=== PATIENT | male | born 1935 | race Caucasian/White ===

== ENCOUNTER 2022-07-06 11:59 | Day surgery (SDC) | payer MEDICARE, BC ==
[~2022-07-06] VITALS: Ht 182.9 cm; Wt 71.5 kg
[2022-07-06] MEDS ORDERED: MIDAZolam 1mg/ml 10ml vial IV ONE (12:25)
[2022-07-06] MEDS ORDERED: normal saline 1000ml 1,000 ML IV SCH (12:25)
[2022-07-06] MEDS ORDERED: fentaNYL/PF 50MCG/1 ML 2ML syringe IV ONE (12:25)
[2022-07-06 12:30] VITALS: BP 106/63
[2022-07-06] MEDS ORDERED: APIX5TAB3 PO (12:34)
[2022-07-06] MEDS ORDERED: midazolam 1 mg/ML 2ml injection ONE (15:13)
[2022-07-06] MEDS ORDERED: fentaNYL/PF 50MCG/1 ML 2ML syringe ONE (15:13)
[2022-07-06 15:50] VITALS: BP 88/58
[2022-07-06 16:03] VITALS: BP 92/63
[2022-07-06 16:18] VITALS: BP 98/66
[2022-07-06 16:33] VITALS: BP 96/69
[2022-07-06 16:50] VITALS: BP 98/61
== END 2022-07-06 17:00 | disposition home or self-care (01) ==
LOC: SSTAY O 11:59 → EDSTATUS 15:30 → SSTAY O 17:00
PROVIDERS: ATTEND Student in an Organized Health Care Education/Training Program
DX: I08.3 Combined rheumatic disorders of mitral, aortic and tricuspid valves (principal); I48.91 Unspecified atrial fibrillation; I45.10 Unspecified right bundle-branch block; Z79.01 Long term (current) use of anticoagulants
CPT/HCPCS: 93312; 93325; 99152; J2250; J3010; J7030; A4620

== ENCOUNTER 2022-08-24 12:41 | Day surgery (SDC) | payer MEDICARE, BC ==
[2022-08-24] VITALS (7 sets, daily range): BP systolic 99–131; BP diastolic 62–83
[~2022-08-24] VITALS: Ht 190.5 cm; Wt 72.7 kg
[~2022-08-24 12:41] MED LIST: APIX5TAB3 PO
[2022-08-24] MEDS ORDERED: normal saline 1,000 ML IV SCH (13:00)
[2022-08-24] MEDS ORDERED: LORazepam 0.5 MG tablet PO PRN (13:00)
[2022-08-24] MEDS ORDERED: diphenhydrAMINE 25mg capsule PO PRN (13:00)
[2022-08-24] MEDS ORDERED: heparin 1,000unit/ml 10ml vial 10 ML ONE (13:41)
[2022-08-24] MEDS ORDERED: midazolam 1 mg/ML 2ml injection ONE (13:41)
[2022-08-24] MEDS ORDERED: verapamil 2.5 mg/ml inj IV ONE (13:41)
[2022-08-24] MEDS ORDERED: iohexol 350MG/ML 100ml bottle IV ONE ×2 (13:41→15:11)
[2022-08-24] MEDS ORDERED: LIDOcaine 1% (10mg/ml) 2ml vial ONE (13:41)
[2022-08-24] MEDS ORDERED: nitroGLYCERIN-Tridil 50MG/D5W 250 ML IV ONE (13:41)
[2022-08-24] MEDS ORDERED: fentaNYL/PF 50MCG/1 ML 2ML syringe ONE (13:41)
[2022-08-24 15:35] LABS: ISTAT Hct MIX 35 %PCV (42-52); ISTAT O2 SATURATION MIX VENOUS 67 % (60-80); ISTAT SOURCE VEN
[2022-08-25 07:08] LABS: ISTAT Hct MIX 36 %PCV (42-52); ISTAT O2 SATURATION MIX VENOUS 93 % (60-80); ISTAT SOURCE BLNK
== END 2022-08-24 17:45 | disposition home or self-care (01) ==
LOC: SSTAY O 12:41
PROVIDERS: ATTEND Student in an Organized Health Care Education/Training Program
DX: I08.1 Rheumatic disorders of both mitral and tricuspid valves (principal); I25.10 Atherosclerotic heart disease of native coronary artery without angina pectoris; I48.91 Unspecified atrial fibrillation; I45.10 Unspecified right bundle-branch block; Z79.899 Other long term (current) drug therapy
CPT/HCPCS: 82803; 85014; 93005; 93460; 93571; 99152; 99153; A6258; C1751; C1769; C1894; J1644; J2250; J3010; J3490; J7030; Q0163; Q9967; A6402

== ENCOUNTER 2023-02-22 10:54 | Day surgery (SDC) | payer MEDICARE, BC ==
[~2023-02-22] VITALS: Ht 180.3 cm; Wt 66.5 kg
[2023-02-22] VITALS (14 sets, daily range): BP systolic 91–113; BP diastolic 41–58; PULSE 48–62; RESP 16; TEMP 97.7; O2SAT 95–100
[2023-02-22] MEDS ORDERED: MIDAZolam 1mg/ml 10ml vial IV ONE (11:15)
[2023-02-22] MEDS ORDERED: normal saline 1000ml 1,000 ML IV SCH (11:15)
[2023-02-22] MEDS ORDERED: fentaNYL/PF 50MCG/1 ML 2ML syringe IV ONE (11:15)
[2023-02-22 11:32] LABS: BASOPHILS % (AUTO) 0.6 % (0-1); EOSINOPHILS % (AUTO) 0.5 % (0-6); HEMATOCRIT 34.1 % (42.0-52.0); HEMOGLOBIN 11.4 g/dl (14.0-17.9); LYMPHOCYTES # (AUTO) 1.8 X10'3 (1.1-4.8); LYMPHOCYTES % (AUTO) 35.6 % (21-51); MEAN CORPUSCULAR HGB CONC 33.5 g/dL (33.0-36.5); MEAN CORPUSCULAR VOLUME 86.5 FL (78-98); MEAN PLATELET VOLUME 7.1 FL (7.4-10.4); MONOCYTES # (AUTO) 0.5 X10'3 (0-0.9); MONOCYTES % (AUTO) 9.1 % (2-12); NEUTROPHILS # (AUTO) 2.8 X10'3 (1.8-7.7); NEUTROPHILS % (AUTO) 54.2 % (42-75); PLATELET COUNT 148 X10'3 (140-440); RED BLOOD COUNT 3.94 X10'6 (4.70-6.10); RED CELL DISTRIBUTION WIDTH 16.5 % (11.5-14.5); WHITE BLOOD COUNT 5.1 X10'3 (4.5-11.0)
[2023-02-22] MEDS ORDERED: METO-395 PO (11:34)
[2023-02-22] MEDS ORDERED: ASPIRIN (11:34)
[2023-02-22] MEDS ORDERED: ASPI-1475 PO (11:34)
[2023-02-22] MEDS ORDERED: CHOL50004 PO (11:36)
[2023-02-22 11:41] LABS: ALBUMIN 3.6 G/DL (3.4-5.0); ANION GAP 9 (8-16); BLOOD UREA NITROGEN 18 MG/DL (7-18); CALCIUM 8.6 MG/DL (8.5-10.1); CHLORIDE 105 MMOL/L (99-107); GLUCOSE 90 MG/DL (70-104); INR 1.1 INR; PROTHROMBIN TIME 11.5 SECONDS (9.0-12.0); SODIUM 140 MMOL/L (135-145); TOTAL CARBON DIOXIDE 25.8 MMOL/L (24-32); eCRCL 83 ML/MIN; eGFR > 90 ML/MIN
== END 2023-02-22 13:50 | disposition home or self-care (01) ==
LOC: SSTAY O 10:54
PROVIDERS: ATTEND Student in an Organized Health Care Education/Training Program
DX: I48.91 Unspecified atrial fibrillation (principal); I45.10 Unspecified right bundle-branch block; I08.1 Rheumatic disorders of both mitral and tricuspid valves; E78.5 Hyperlipidemia, unspecified; Z79.01 Long term (current) use of anticoagulants; Z79.899 Other long term (current) drug therapy
CPT/HCPCS: 36415; 80048; 85025; 85610; 92960; J2250; J3010; J7030; A4620